=== PATIENT | female | born 1975 | race Asian ===

== ENCOUNTER 2020-09-29 20:44 | Emergency (ER) | payer BC ==
[~2020-09-29] VITALS: Ht 160 cm; Wt 68.9 kg
[2020-09-29 20:52] VITALS: Ht 160 cm; Wt 68.9 kg
[2020-09-29 22:03] VITALS: BP 129/52
[2020-09-29] MEDS ORDERED: IBU600 M2 PO (22:25)
== END 2020-09-29 22:40 | disposition home or self-care (01) ==
LOC: ED 20:44
DX: S09.8XXA Other specified injuries of head, initial encounter (principal); I10 Essential (primary) hypertension; E78.00 Pure hypercholesterolemia, unspecified; W01.0XXA Fall on same level from slipping, tripping and stumbling without subsequent striking against object, initial encounter; Y93.89 Activity, other specified; Y92.89 Other specified places as the place of occurrence of the external cause; Y99.8 Other external cause status